=== PATIENT | female | born 1930 | race Caucasian/White ===

== ENCOUNTER 2021-08-08 07:10 | Day surgery (SDC) | payer MEDICARE, OTHER ==
[~2021-08-08 07:10] MED LIST: COUMADIN 22.5 MG/TAB PO; CRESTOR40 MG PO; GLUCOPHAGE XR500 M1 PO; PRINIVIL20 MG PO; PROTONIX20 MG PO; TRULICITY4.5 MG/0.5 SQ; ZETIA 10MG TAB10 MG PO; ZOLOFT 50MG50 MG PO
[2021-08-08] MEDS ORDERED: VITAMIN D31000 I1 PO (07:49)
[2021-08-08 08:04] VITALS: BP 155/55; PULSE 87; TEMP 98.2
[2021-08-08 08:06] LABS: BASO # 0.1 K/mm3 (0.0-0.2); BASO % 0.6 % (0.0-2.0); EOS # 0.1 K/mm3 (0.0-0.7); EOS % 1.6 % (0.0-4.0); GRAN # 6.7 K/mm3 (1.4-6.5); GRAN % 75.1 % (42.2-75.2); HEMOGLOBIN 10.8 g/dl (12.5-16.0); LYMPH # 1.3 K/mm3 (1.2-3.4); LYMPH % 14.6 % (20.0-51.0); MEAN CELL VOLUME 91 fl (80.0-100.0); MEAN CORPUSCULAR HEMOGLOBIN 30 pg (27-31); MEAN CORPUSCULAR HGB CONC 33 g/dl (33.0-37.0); MONO # 0.7 K/mm3 (0.1-0.6); MONO % 7.8 % (1.7-9.3); PLATELET COUNT 223 K/mm3 (130-400); RED BLOOD COUNT 3.63 M/mm3 (4.10-5.30); REDCELL DISTRIBUTION WIDTH-CV 14.2 % (11.5-14.5)
[2021-08-08 08:14] LABS: PROTHROMBIN TIME 21.8 SECONDS (9.7-12.8)
[2021-08-08 08:16] LABS: HEMATOCRIT 32.9 % (37.0-47.0)
[2021-08-08 08:22] LABS: COLLECTION METHOD CATHETER
[2021-08-08 08:23] LABS: ALBUMIN 3.1 gm/dL (3.4-4.8); BILIRUBIN,TOTAL 0.5 mg/dL (0.2-1.2); CALCIUM 8.6 mg/dL (8.4-10.2); CREATININE, serum 1.89 mg/dL (0.57-1.11); POTASSIUM 4.8 mmol/L (3.5-4.5)
[2021-08-08 08:36] LABS: MUCOUS Present (NOT PRESENT); PH 7 (5-8); SQUAMOUS EPITHELIAL 0-2 /hpf (0-10); URINE APPEARANCE Clear (CLEAR/HAZY); URINE BACTERIA Occasional /hpf (NONE SEEN); URINE BILIRUBIN Negative (NEGATIVE); URINE BLOOD 3+ (NEGATIVE); URINE COLOR Yellow (YELLOW); URINE GLUCOSE Negative (NEGATIVE); URINE KETONE Negative (NEGATIVE); URINE LEUKOCYTE ESTERASE Trace (NEGATIVE); URINE NITRATE Negative (NEGATIVE); URINE PROTEIN(semi-quant) Negative (NEGATIVE); URINE UROBILINOGEN Negative (NEGATIVE)
--- NOTE | 2021-08-08 08:50 | NUR ---
PT ADMITTED TO ROOM 323. TRANSFER FROM [facility] PER EMS. PT IS ALERT AND ORIENTED TO PERSON. PT HAS BASELINE DEMENTIA PER [facility] H&P. DYLAN GRAY WITH DR. WALLACE IN TO SEE PT ON ARRIVAL. PT WILL NEED MEDICAL CLEARANCE. PT IS DNR PER SON AND PAPERWORK SENT BY NH. LEFT LEG IS INTERNALLY ROTATED AND PT REPORTS THAT THIS POSITION IS COMFORTABLE AND REPORTING PAIN AT 0/10.
--- NOTE | 2021-08-08 11:02 | NUR ---
PT RESTING IN BED. WAITING FOR MEDICAL CLEARANCE TO PROCEED WITH SURGERY.
[2021-08-08 12:19] VITALS: BP 150/51; PULSE 89; TEMP 98.2
[2021-08-08 15:33] VITALS: BP 151/91; PULSE 93; TEMP 97.9
--- NOTE | 2021-08-08 16:49 | NUR ---
Yovani ROACH informs this Configuration Consultant that patient is awaiting surgery, and will likely need skilled care at discharge. Patient is oriented only to self, and currently resides at [facility] in [place]. Patient son was at bedside and just left. He is interested in options for discharge planning. This Configuration Consultant unable to identify son Alonzo Walter's telephone contact in the medical record. Configuration Consultant contacted [facility] seeking contact information for patient son, and Ivonne ROACH informs cannot locate this information at this time. She does not know if the facility can offer patient increased level of care and/or fci or rehab services upon return at discharge. She locates a telephone contact for "Janie" whom she believes is Alonzo's spouse , who may be able to give contact for Alonzo. She requests Configuration Consultant call back tomorrow and speak to SAMY Quintero or Cat Dog Or Other Pet Groomer Yuliana for further information. Configuration Consultant contacted Janie and left a general voice message for Alonzo requesting call back; no protected healthcare information or patient identifier released at this time. Configuration Consultant will continue to follow; patient will not discharge until after surgery. Attempting to locate contact information for patient son Alonzo, who wants to discuss discharge planning and options for care. RN at [facility] unable to identify the levels of care available at the facility. *Discharge plan: SNF or IPR vs. return to [facility]*
[2021-08-08 20:07] VITALS: BP 139/82; PULSE 96; TEMP 99
--- NOTE | 2021-08-08 20:29 | NUR ---
PT ASSISTED WITH REPOSITIONING, OBVIOUS DEFORMITY OF LT LEG. IRAHETA TO BSD, URINE YELLOW. ORIENTED TO PERSON, UNSURE WHERE SHE IS. TAKES HS MED WITHOUT PROBLEM. REFUSED DINNER. MORPHINE 2MG IVP GIVEN. HAS IV TO LEFT FOREARM, FLUIDS INFUSING WITHOUT PROBLEM. WILL BE NPO AFTER MN FOR POSSIBLE SURGERY 08/09.
[2021-08-08 23:20] VITALS: BP 114/24; PULSE 87; TEMP 97.7
--- NOTE | 2021-08-09 02:52 | NUR ---
PT MOANING, MORPHINE 2MG IVP GIVEN AT THIS TIME. IS NPO FOR POSSIBLE SURGERY TODAY.
[2021-08-09 03:17] VITALS: BP 103/73; PULSE 86; TEMP 98.5
--- NOTE | 2021-08-09 06:00 | NUR ---
PT RESTING WELL IN BED. IS NPO.
[2021-08-09 06:15] LABS: INR 2.8 (0.8-3.0); PROTHROMBIN TIME 30.9 SECONDS (9.7-12.8)
[2021-08-09 06:21] LABS: BASO # 0.1 K/mm3 (0.0-0.2); BASO % 0.7 % (0.0-2.0); EOS # 0.2 K/mm3 (0.0-0.7); EOS % 2.7 % (0.0-4.0); GRAN # 4.9 K/mm3 (1.4-6.5); GRAN % 73.8 % (42.2-75.2); LYMPH # 0.9 K/mm3 (1.2-3.4); LYMPH % 13.2 % (20.0-51.0); MEAN CELL VOLUME 92 fl (80.0-100.0); MEAN CORPUSCULAR HGB CONC 32 g/dl (33.0-37.0); MEAN PLATELET VOLUME 10.4 fl (7.4-10.4); MONO # 0.6 K/mm3 (0.1-0.6); MONO % 9.3 % (1.7-9.3); PLATELET COUNT 210 K/mm3 (130-400); RED BLOOD COUNT 3.33 M/mm3 (4.10-5.30); REDCELL DISTRIBUTION WIDTH-CV 14.3 % (11.5-14.5)
[2021-08-09 06:37] LABS: CREATININE, serum 1.27 mg/dL (0.57-1.11); POTASSIUM 4.6 mmol/L (3.5-4.5)
[2021-08-09 07:01] LABS: HEMATOCRIT 30.6 % (37.0-47.0); HEMOGLOBIN 9.8 g/dl (12.5-16.0); MEAN CORPUSCULAR HEMOGLOBIN 29 pg (27-31)
--- NOTE | 2021-08-09 08:00 | NUR ---
PATIENT IS CONFUSED AT BASELINE AND DROWSY THIS AM. PATIENT LIVES IN A NH IN [place]. VSS. APPEARS TO BE COMFORTABLE WITH NO COMPLAINTS. ADITTED FOR LEFT HIP FX AND SURGERY PENDING. INR THIS AM WAS 2.8, NO SURGERY TODAY, ORTHO ROUNDING NOW AND TALKING WITH SON ON PHONE. HEAD TO TOE ASSESSMENT COMPLETE. AM MEDS GIVEN. IV FLUIDS INFUSING INTO LEFT FOARARM IV VIA PUMP. IRAHETA TO DD WITH SMALL AMOUNTS OF YELLOW URINE NOTED AT THIS TIME. AM BS WAS 123. PATIENT WAS NPO FOR PENDING SURGERY WHICH WILL NOT HAPPEN TODAY NOW. SCD'S TO BLE. CALL LIGHT IN REACH. BED ALARM ON. PATIENT RESTING, NO NEEDS AT THIS TIME.
[2021-08-09 08:01] VITALS: BP 136/50; PULSE 91; TEMP 97.3
[2021-08-09 12:04] VITALS: BP 108/44; PULSE 84; TEMP 98.4
[2021-08-09 16:00] VITALS: BP 137/59; PULSE 85; TEMP 98.8
[2021-08-09 19:30] VITALS: BP 106/39; PULSE 92; TEMP 99.4
[2021-08-09 20:45] LABS: INR 2.3 (0.8-3.0); PROTHROMBIN TIME 25.4 SECONDS (9.7-12.8)
--- NOTE | 2021-08-09 21:59 | NUR ---
PT RESTING WITH GRIMACE, ALERT TO SELF. IRAHETA INTACT TO DD. MORPHINE FOR PAIN. PT IS CONFUSED AND WILL OFTEN DENY PAIN BUT GRIMACES, HAS DEMENTIA. INR 2.3 CALLED TO [facility]A-VIT K DOSE GIVEN. IV FLUIDS RUNNING. PM MEDS GIVEN.
[2021-08-09 23:55] VITALS: BP 118/41; PULSE 90; TEMP 98
[2021-08-10 03:43] VITALS: BP 128/46; PULSE 90; TEMP 98.4
--- NOTE | 2021-08-10 06:01 | NUR ---
RESTED THROUGH THE NIGHT WITHOUT INCIDENT. FLUIDS RUNNING. CATH IN PLACE. HAS BEEN NPO INCASE INR COMES DOWN FOR SURGERY. NEEDS MET.
[2021-08-10 07:03] LABS: BASO # 0.1 K/mm3 (0.0-0.2); BASO % 0.7 % (0.0-2.0); EOS # 0.3 K/mm3 (0.0-0.7); GRAN # 5.6 K/mm3 (1.4-6.5); GRAN % 73.7 % (42.2-75.2); LYMPH # 0.9 K/mm3 (1.2-3.4); LYMPH % 11.6 % (20.0-51.0); MEAN CELL VOLUME 93 fl (80.0-100.0); MEAN CORPUSCULAR HGB CONC 32 g/dl (33.0-37.0); MEAN PLATELET VOLUME 10.2 fl (7.4-10.4); MONO # 0.7 K/mm3 (0.1-0.6); MONO % 9.6 % (1.7-9.3); PLATELET COUNT 191 K/mm3 (130-400); RED BLOOD COUNT 3.18 M/mm3 (4.10-5.30); REDCELL DISTRIBUTION WIDTH-CV 14.2 % (11.5-14.5)
[2021-08-10 07:04] LABS: INR 1.8 (0.8-3.0); PROTHROMBIN TIME 20.4 SECONDS (9.7-12.8)
[2021-08-10 07:07] LABS: HEMATOCRIT 29.7 % (37.0-47.0); HEMOGLOBIN 9.4 g/dl (12.5-16.0); MEAN CORPUSCULAR HEMOGLOBIN 30 pg (27-31)
[2021-08-10 07:18] LABS: CALCIUM 7.8 mg/dL (8.4-10.2); CREATININE, serum 1.02 mg/dL (0.57-1.11); POTASSIUM 4.3 mmol/L (3.5-4.5)
--- NOTE | 2021-08-10 07:49 | NUR ---
ASSESSMENT COMPLETE. PT. IS LYING IN BED AWAKE. SHE IS ORIENTED TO NAME ONLY. SHE HAS LR FLOWING INTO RIGHT FORARM AT 75 ML/HR. IRAHETA IS SECURED AND DEPENDENT TO DRAINAGE. LEFT LEG IS SUPPORTED BY PILLOWS. CALL LIGHT IS WITHIN REACH. WILL CONTINUE TO MONITOR PT. CLOSELY.
[2021-08-10 08:00] VITALS: BP 171/75; PULSE 102; TEMP 100.6
--- NOTE | 2021-08-10 08:30 | NUR ---
NOTIFIED HOSPITALIST TEAM OF LOW GRADE TEMP OF 100.6 AND INR OF 1.8. SEE NEW ORDERS. GAVE PRN TYLENOL, SENT [facility], AND CALLED RADIOLOGY FOR CXR. PATIENT ALREADY GIVEN IV MORPHINE FOR COMFORT. VITALS IMPROVED, SEE FLOWSHEET. PATIENT RESTING COMFORTABLY AT THIS TIME. CALL LIGHT IN REACH. BED ALARM ON. SON WAS HERE BRIEFLY THIS AM AND WENT TO WORK TILL CLOSER TO SURGERY TIME. CONTACT NUMBER ON BOARD.
[2021-08-10 09:05] VITALS: BP 151/52; PULSE 101; TEMP 98.8
--- NOTE | 2021-08-10 10:28 | NUR ---
ANTHONY obtained the patient's son, Alonzo's, phone number in the chart. [phone]. SW contacted the patient's son, Alonzo, to review discharge plan and to discuss SNF. Alonzo confirms that the patient resides at [facility] in [place]. Him and his brother are in agreement to SNF. He states that they both live in [place] and would prefer 1) [facility] 2) [facility]. SW notified both facilities. SW student faxed a referral to both facilities. Awaiting screens. The patient is awaiting surgery. *Discharge plan: SNF, referrals out*
--- NOTE | 2021-08-10 10:30 | NUR ---
Social Work student faxed SNF referrals to Chiki at [facility] and Mayra at [facility].
[2021-08-10 10:49] LABS: COLLECTION METHOD CATHETER
--- NOTE | 2021-08-10 11:00 | NUR ---
RADIOLOGY AT BEDSIDE TO OBTAIN CXR
[2021-08-10 11:05] LABS: MUCOUS Present (NOT PRESENT); PH 5 (5-8); SQUAMOUS EPITHELIAL None Seen /hpf (0-10); URINE APPEARANCE Clear (CLEAR/HAZY); URINE BACTERIA Rare /hpf (NONE SEEN); URINE BILIRUBIN Negative (NEGATIVE); URINE BLOOD 3+ (NEGATIVE); URINE COLOR Yellow (YELLOW); URINE GLUCOSE Negative (NEGATIVE); URINE KETONE 1+ (NEGATIVE); URINE LEUKOCYTE ESTERASE Negative (NEGATIVE); URINE NITRATE Negative (NEGATIVE); URINE PROTEIN(semi-quant) Negative (NEGATIVE); URINE RBC 0-2 /hpf (0-2); URINE UROBILINOGEN Negative (NEGATIVE)
[2021-08-10 12:00] VITALS: BP 101/30; BP 116/62; PULSE 95; TEMP 98.6
--- NOTE | 2021-08-10 12:09 | NUR ---
First visit from the finance business manager. No needs right now.
[2021-08-10 13:31] LABS: INR 1.6 (0.8-3.0); PROTHROMBIN TIME 17.4 SECONDS (9.7-12.8)
[2021-08-10 15:32] VITALS: BP 152/57; PULSE 90; TEMP 99
--- NOTE | 2021-08-10 18:33 | NUR ---
PT. SPENT THE AFTERNOON SLEEPING IN BED. MORPHINE WAS GIVEN TWICE (SEE EMAR) THIS SHIFT WHEN PT STARTED TO GRIMACE, BECOME TENSE, AND MOAN. CALL LIGHT WITHIN REACH. PT. IS FREQUENTLY CHECKED ON. NO FURTHER NEEDS AT THIS TIME.
[2021-08-10 19:44] LABS: INR 1.6 (0.8-3.0)
[2021-08-10 20:18] VITALS: BP 131/65; PULSE 99; TEMP 98.2
--- NOTE | 2021-08-10 20:57 | NUR ---
PT IN BED, MOANING IN PAIN. TAKES HS MED WITHOUT PROBLEM. MEDICATED WITH MORPHINE 2MG IVP AT THIS TIME. HAS IVF TO LEFT FOREARM, NO REDNESS OR SWELLING. INR=1.6, VIT K IV GIVEN PER ORDER. IRAHETA TO BSD, YELLOW URINE. LEFT LEG AT AWKWARD POSITION, SCREAMS IN PAIN WITH REPOSITIONING. POSSIBLE SURGERY TOMORROW.
[2021-08-11] VITALS (14 sets, daily range): BP systolic 94–166; BP diastolic 49–87; PULSE 85–107; TEMP 97.4–99.1
--- NOTE | 2021-08-11 01:16 | NUR ---
PT MOANING IN PAIN, MORPHINE 2MG IVP GIVEN.
[2021-08-11 05:13] LABS: BASO % 0.5 % (0.0-2.0); EOS # 0.3 K/mm3 (0.0-0.7); GRAN # 6.4 K/mm3 (1.4-6.5); GRAN % 77.9 % (42.2-75.2); LYMPH # 0.8 K/mm3 (1.2-3.4); LYMPH % 9.9 % (20.0-51.0); MEAN CELL VOLUME 90 fl (80.0-100.0); MEAN CORPUSCULAR HGB CONC 33 g/dl (33.0-37.0); MEAN PLATELET VOLUME 10.1 fl (7.4-10.4); MONO # 0.7 K/mm3 (0.1-0.6); MONO % 8.3 % (1.7-9.3); PLATELET COUNT 193 K/mm3 (130-400); RED BLOOD COUNT 3.37 M/mm3 (4.10-5.30)
[2021-08-11 05:18] LABS: HEMATOCRIT 30.4 % (37.0-47.0); HEMOGLOBIN 9.9 g/dl (12.5-16.0); MEAN CORPUSCULAR HEMOGLOBIN 29 pg (27-31)
[2021-08-11 05:27] LABS: CALCIUM 7.8 mg/dL (8.4-10.2); CREATININE, serum 0.92 mg/dL (0.57-1.11); POTASSIUM 4.3 mmol/L (3.5-4.5)
[2021-08-11 06:36] LABS: INR 1.5 (0.8-3.0); PROTHROMBIN TIME 16.6 SECONDS (9.7-12.8)
--- NOTE | 2021-08-11 07:35 | NUR ---
ASSESSMENT COMPLETE. PT RESTING IN BED WITH OCCASIONAL MOAN. SHE OPENS HER EYES AND TALKS WHEN TOUCHED. MORPHINE GIVEN IV (SEE EMAR). IRAHETA SECURED AND DEPENDENT TO DRAINAGE. VIT. K AND NS RUNNING THROUGH LEFT FORARM IV. LEFT LEG IS SUPPORTED BY PILLOWS. NO FURTHER NEEDS AT THIS TIME. CALL LIGHT WITHIN REACH. WILL CONTINUE TO CHECK ON PT REGURALY.
--- NOTE | 2021-08-11 09:15 | NUR ---
CALLED LAB AND RE-ENTERED ORDER FOR TYPE & SCREEN THAT WAS ORDERED YESTERDAY, PER , FOR PENDING SURGERY TODAY. LAB CANCELED TYPE & SCREEN FOR UNKNOWN REASONS. LAB TO GET TYPE & SCREEN STAT
--- NOTE | 2021-08-11 11:05 | NUR ---
The patient may be able to have surgery today, depending on her if her INR comes down. SW faxed updates to [facility] and [facility].
[2021-08-11 13:18] LABS: INR 1.4 (0.8-3.0)
--- NOTE | 2021-08-11 13:48 | NUR ---
PATIENT GOING DOWN TO OR VIA BED. PRE-OP INR OF 1.4, CLEARED FOR SURGERY WITH OR AND ANESTHESIA. CONSENT ON CHART. PRE-OP FLUIDS INFUSING INTO LEFT FORARM IV. SONS AT BEDSIDE. PATIENT OF FLOOR.
--- NOTE | 2021-08-11 16:55 | NUR ---
PT. TO ROOM 323 POST LEFT HIP SURGERY. PT. HANDLED PROCEDURE WELL. PT IS DROWSY BUT ALERT AND RELAXED. PEDAL PULSES ARE INTACT. IRAHETA IN PLACE. FLUIDS FLOWING IN LEFT FORARM. FAMILY IS AT BEDSIDE. WATER AND JELLO WAS PROVIDED AND ACCEPTED BY PT. CALL LIGHT WITHIN REACH. NO FURTHER NEEDS AT THIS TIME. WILL CONTINUE TO MONITOR.
--- NOTE | 2021-08-11 19:31 | NUR ---
PT AWAKE, CONFUSED. TAKING BLANKETS AND GOWN OFF. THINKS SHE NEEDS TO GET UP AND GO HOME. NEW IV SITE STARTED BY SALVADOR ROACH TO LEFT UPPER ARM. ATTEMPTED REORIENTATION WITHOUT SUCCESS. MEDICATED WITH MORPHINE FOR FACIAL GRIMACING WHEN MOVING LEFT LEG.
--- NOTE | 2021-08-11 20:20 | NUR ---
PT HAS CLOTHES OFF AND IS PULLING ON IRAHETA CATHETER. INSISTING ON LEAVING. MITTS PLACED ON PT TO PROTECT IRAHETA, DRSG AND IV SITE.
--- NOTE | 2021-08-11 22:17 | NUR ---
PT MORE CALM WITH MITTS ON. MEDICATED WITH HS MEDS INCLUDING OXYCODONE 5MG PO. AQUACEL DRSG INTACT TO LEFT LEG. IRAHETA PATENT, IV SITE TO LEFT UPPER ARM WITHOUT REDNESS OR SWELLING. BED ALARM ON.
[2021-08-12] VITALS (7 sets, daily range): BP systolic 109–163; BP diastolic 41–93; PULSE 76–124; TEMP 97.4–98.6
--- NOTE | 2021-08-12 00:30 | NUR ---
PT RESTING WELL, SLEPT THRU VS.
--- NOTE | 2021-08-12 04:09 | NUR ---
PT AWAKE, RESTLESS AND GRIMACING IN PAIN. MEDICATED WITH MORPHINE 2MG IVP AT THIS TIME. REMAINS IN MITTS TO PROTECT IV SITE AND IRAHETA.
--- NOTE | 2021-08-12 06:35 | NUR ---
SCHEDULED AM MED GIVEN WITH OXYCODONE 5MG PO AT THIS TIME. PT AWAKE AND TALKATIVE.
[2021-08-12 06:39] LABS: MEAN CELL VOLUME 94 fl (80.0-100.0); MEAN CORPUSCULAR HGB CONC 31 g/dl (33.0-37.0); MEAN PLATELET VOLUME 10.3 fl (7.4-10.4); PLATELET COUNT 232 K/mm3 (130-400); RED BLOOD COUNT 3.23 M/mm3 (4.10-5.30); REDCELL DISTRIBUTION WIDTH-CV 14.1 % (11.5-14.5)
--- NOTE | 2021-08-12 06:40 | NUR ---
awake and in bed, ISAAC Centeno in to see patient, she is pleasant and cooperative at this time, bedside shift report received from DOC Garrett
[2021-08-12 06:41] LABS: HEMATOCRIT 30.3 % (37.0-47.0); HEMOGLOBIN 9.4 g/dl (12.5-16.0); MEAN CORPUSCULAR HEMOGLOBIN 29 pg (27-31)
[2021-08-12 06:57] LABS: CALCIUM 7.8 mg/dL (8.4-10.2); POTASSIUM 4.5 mmol/L (3.5-4.5)
[2021-08-12 07:25] LABS: BAND 7 % (0-10); LYMPHOCYTE 5 % (20.0-51.0); NEUTROPHILS 85 % (42.0-75.2); OVALOCYTES 1+
[2021-08-12 07:26] LABS: HYPOCHROMIA 2+; PLATELET ESTIMATE NORMAL (NORMAL); POIKILOCYTOSIS 2+; SCHISTOCYTES 1+
--- NOTE | 2021-08-12 08:20 | NUR ---
awake and resting in bed, trying to take off mitts to bilateral hands, saying she has to go to the bathroom, reminded her she had a catheter and also reoriented to day and place, mitts were removed and she is not attempting to remove catheter or IV at this time, full assessment completed, see interventions for further info, repositioned up in bed and breakfast ordered,
--- NOTE | 2021-08-12 09:30 | NUR ---
physical and occupational therapist in to work with patient, they were able to get her to sit up on side of bed but she resisted them helping her do this, she wouldn't even follow commands of therapist to raise her arms, back in bed in supine position
--- NOTE | 2021-08-12 10:21 | NUR ---
sitting up in bed and assited her with Dr Kleber hodges and care team in to see patient, ate small amount of breakfast
--- NOTE | 2021-08-12 11:19 | NUR ---
Social Work student faxed clinical updates to Chiki at [facility] and Mayra at [facility].
--- NOTE | 2021-08-12 11:30 | NUR ---
sons state she is more fidgety at this time, medicated with roxicodone 5mg for pain, she does state she has pain when asked, ate all of applesauce
--- NOTE | 2021-08-12 12:00 | NUR ---
hassan catheter discontinued and purewick catheter placed, repositioned onto right side
--- NOTE | 2021-08-12 12:30 | NUR ---
is less fidgety and restless now, remains on right side
--- NOTE | 2021-08-12 13:08 | NUR ---
is restless again and talking about getting a bus, attempt to reorient but remains confused
--- NOTE | 2021-08-12 13:16 | NUR ---
Mayra, at [facility], reports that they are unable to accept the patient; due to not having availabilty in their special care unit.
--- NOTE | 2021-08-12 13:23 | NUR ---
restless and pulling at covers and talking about nothing that is making sense, attempt to reorient but unable
--- NOTE | 2021-08-12 14:15 | NUR ---
resting in bed with eyes open looking around
--- NOTE | 2021-08-12 14:35 | NUR ---
Social Work student attempted to call Chiki at [facility] to follow up on whether this facility can accept the patient for SNF and got the voicemail. ANTHONY left a voicemail.
--- NOTE | 2021-08-12 14:50 | NUR ---
HEALTH PROMOTION COORDINATOR in and assisted her with eating a late lunch, ate mod amount, she has purewick but nothing in cannister and has not been incontinent
--- NOTE | 2021-08-12 15:04 | NUR ---
Received a call back from Eliza, who is filling in for Chiki, who asked this SW if the patient is still having "behavioral issues." This SW said she was unsure if there were behavioral problems and if they were continuing. Eliza asked if ANTHONY could sent the notes continued from today, and ANTHONY said she could. Eliza stated that they could tentatively take tomorrow. *ANTHONY faxed over notes from the end of today to [facility]
--- NOTE | 2021-08-12 15:30 | NUR ---
is fidgeting with covers and has removed purewick external catheter, left off at this time
--- NOTE | 2021-08-12 16:51 | NUR ---
son back in to visit, spoke with him regarding her cognition and that she has been restless this afternoon and why this may be, due to hx dementia, anesthesia and out of regular environment, verbalizes understanding
--- NOTE | 2021-08-12 18:00 | NUR ---
remains restless in bed, another son is here now and explained the situation to him and verbalizes understanding. has not voided since removing hassan, bladder scan reveals approx 120ml urine in bladder. offered sips of water but declines
--- NOTE | 2021-08-12 18:52 | NUR ---
bedside shift report given to DOC Buchanan
--- NOTE | 2021-08-12 19:30 | NUR ---
Pt. sitting up in bed. PT. is alert and confused. INT to lt. upper arm patent. Pt. denies pain or other needs.
[2021-08-13] VITALS: BP 156/55; PULSE 91; TEMP 99.6
[2021-08-13 04:00] VITALS: BP 154/76; PULSE 101; TEMP 98.3
[2021-08-13 06:30] LABS: BASO % 0.1 % (0.0-2.0); EOS % 0.1 % (0.0-4.0); GRAN # 12.8 K/mm3 (1.4-6.5); GRAN % 89.7 % (42.2-75.2); LYMPH # 0.6 K/mm3 (1.2-3.4); LYMPH % 3.9 % (20.0-51.0); MEAN CORPUSCULAR HGB CONC 33 g/dl (33.0-37.0); MEAN PLATELET VOLUME 10.4 fl (7.4-10.4); MONO # 0.8 K/mm3 (0.1-0.6); MONO % 5.6 % (1.7-9.3); PLATELET COUNT 250 K/mm3 (130-400); RED BLOOD COUNT 3.27 M/mm3 (4.10-5.30); REDCELL DISTRIBUTION WIDTH-CV 14.3 % (11.5-14.5)
[2021-08-13 06:33] LABS: INR 1.4 (0.8-3.0); PROTHROMBIN TIME 15.1 SECONDS (9.7-12.8)
[2021-08-13 06:41] LABS: HEMATOCRIT 29.2 % (37.0-47.0); HEMOGLOBIN 9.6 g/dl (12.5-16.0); MEAN CORPUSCULAR HEMOGLOBIN 29 pg (27-31)
[2021-08-13 06:42] LABS: MEAN CELL VOLUME 89 fl (80.0-100.0)
[2021-08-13 06:45] LABS: CREATININE, serum 1.19 mg/dL (0.57-1.11)
[2021-08-13 07:29] VITALS: BP 136/60; PULSE 105; TEMP 98.8
--- NOTE | 2021-08-13 09:04 | NUR ---
ASSESSMENT COMPLETE. PT. IS CONFUSED AND ORIENTED TO SELF ONLY. PT. REPOSTIONED IN BED AND HELPED TO EAT BREAKFAST. MEDS WERE GIVEN CRUSHED IN APPLESAUCE. PT. INCONTIENT OF URINE. INT IN LEFT UPPPER ARM. DOES NO APPEAR TO BE IN ACUTE DISTRESS. CALL LIGHT WITHIN REACH AND WILL CONTINUE TO CHECK ON PT. REGURALLY.
[2021-08-13] MEDS ORDERED: CRESTOR40 MG PO (09:22)
[2021-08-13] MEDS ORDERED: ZETIA 10MG TAB10 MG PO (09:22)
[2021-08-13] MEDS ORDERED: TYLENOL 325MG325 MG PO (09:22)
[2021-08-13] MEDS ORDERED: COUMADIN 22.5 MG/TAB PO (09:22)
[2021-08-13] MEDS ORDERED: ZOLOFT 50MG50 MG PO (09:23)
[2021-08-13] MEDS ORDERED: OSCAL 500 TAB500 MG PO (09:23)
[2021-08-13] MEDS ORDERED: GLUCOPHAGE XR500 M1 PO (09:23)
[2021-08-13] MEDS ORDERED: PROTONIX20 MG PO (09:23)
[2021-08-13] MEDS ORDERED: MULTI VITAMINS1 TAB PO (09:24)
[2021-08-13] MEDS ORDERED: TRULICITY4.5 MG/0.5 SQ (09:24)
[2021-08-13] MEDS ORDERED: VITAMIN D31000 I1 PO (09:24)
[2021-08-13] MEDS ORDERED: VITAMIN C500 MG PO (09:24)
[2021-08-13] MEDS ORDERED: ROXICODONE 55 MG/TAB PO (09:25)
--- NOTE | 2021-08-13 10:18 | NUR ---
Chiki, at [facility], states that they are able to accept the patient. ANTHONY notified the clinical team. The team is ready to discharge the patient today. ANTHONY updated the patient's son, Alonzo. Alonzo is in agreement to the plan. ANTHONY presented and read the IM form outloud to Alonzo. Alonzo verbalized understanding and of discharge today. He signed the form and ANTHONY provided him with a copy. The patient is to discharge today, 08/13, to [facility] for a skilled stay. Transportation was scheduled at 1400, via [facility]. ANTHONY informed the patient's son and RN of the time. No additional needs at this time.
[2021-08-13 11:38] VITALS: BP 140/82; PULSE 96; TEMP 98.4
--- NOTE | 2021-08-13 14:04 | NUR ---
PT. OFF FLOOR TO VIA [facility]IA [facility]. BELONGINGS WITH PATIENT AND FAMILY. ALL QUESTIONS WERE INVITED AND ANSWERED. REPORT CALLED TO RECEVING FACILITY. PT. DISCHARGED.
== END 2021-08-13 14:10 ==
LOC: SDCO 07:10 → SURG 07:10 → EDSTATUS 15:00 → SURG 08-13 14:10 → SDCO 08-13 14:10
PROVIDERS: Family Medicine; Nurse Practitioner Family; Orthopaedic Surgery Sports Medicine; Physician Assistant; Student in an Organized Health Care Education/Training Program
DX: S72.8X2A Other fracture of left femur, initial encounter for closed fracture (principal); M97.01XA Periprosthetic fracture around internal prosthetic right hip joint, initial encounter; R94.4 Abnormal results of kidney function studies; I44.0 Atrioventricular block, first degree; R82.81 Pyuria; I10 Essential (primary) hypertension; E78.5 Hyperlipidemia, unspecified; I25.10 Atherosclerotic heart disease of native coronary artery without angina pectoris; Z20.822 Contact with and (suspected) exposure to COVID-19; E11.9 Type 2 diabetes mellitus without complications; Z66 Do not resuscitate; F03.90 Unspecified dementia, unspecified severity, without behavioral disturbance, psychotic disturbance, mood disturbance, and anxiety; K21.9 Gastro-esophageal reflux disease without esophagitis; K59.00 Constipation, unspecified; F32.A Depression, unspecified; M19.90 Unspecified osteoarthritis, unspecified site; X50.9XXA Other and unspecified overexertion or strenuous movements or postures, initial encounter; Y92.129 Unspecified place in nursing home as the place of occurrence of the external cause; Z79.84 Long term (current) use of oral hypoglycemic drugs; Z79.899 Other long term (current) drug therapy; Z79.01 Long term (current) use of anticoagulants; Z86.711 Personal history of pulmonary embolism
CPT/HCPCS: OP; 99222-AI; 99232-AI; 99239; A9284; C1713; C1776; J0690; J0696; J1815; J2250; J2270; J2704; J2795; J3010; J3430; J7030; J7120; J7121

== ENCOUNTER → 2021-08-17 | Outpatient (REF) ==
[~2021-08-17] MED LIST changes: +MULTI VITAMINS1 TAB PO; +OSCAL 500 TAB500 MG PO; +ROXICODONE 55 MG/TAB PO; +TYLENOL 325MG325 MG PO; +VITAMIN C500 MG PO; +VITAMIN D31000 I1 PO
[2021-08-17 09:52] LABS: BASO # 0.1 K/mm3 (0.0-0.2); BASO % 0.5 % (0.0-2.0); EOS # 0.4 K/mm3 (0.0-0.7); EOS % 4.4 % (0.0-4.0); GRAN # 7.1 K/mm3 (1.4-6.5); GRAN % 75.8 % (42.2-75.2); MEAN CELL VOLUME 89 fl (80.0-100.0); MEAN CORPUSCULAR HGB CONC 33 g/dl (33.0-37.0); MEAN PLATELET VOLUME 10.3 fl (7.4-10.4); MONO # 0.7 K/mm3 (0.1-0.6); MONO % 7.3 % (1.7-9.3); PLATELET COUNT 262 K/mm3 (130-400); RED BLOOD COUNT 3.15 M/mm3 (4.10-5.30); REDCELL DISTRIBUTION WIDTH-CV 14.8 % (11.5-14.5)
[2021-08-17 09:55] LABS: HEMATOCRIT 27.9 % (37.0-47.0); HEMOGLOBIN 9.3 g/dl (12.5-16.0); MEAN CORPUSCULAR HEMOGLOBIN 30 pg (27-31)
[2021-08-17 10:07] LABS: CALCIUM 7.9 mg/dL (8.4-10.2); CREATININE, serum 0.83 mg/dL (0.57-1.11); POTASSIUM 3.6 mmol/L (3.5-4.5)
== END ==
LOC: ZLAB.STJ 09:46
DX: N17.9 Acute kidney failure, unspecified (principal); Z79.01 Long term (current) use of anticoagulants

== ENCOUNTER → 2021-08-26 | Outpatient (REF) ==
[2021-08-26 10:29] LABS: BASO # 0.1 K/mm3 (0.0-0.2); EOS # 0.3 K/mm3 (0.0-0.7); EOS % 5.9 % (0.0-4.0); GRAN # 3.9 K/mm3 (1.4-6.5); GRAN % 68.3 % (42.2-75.2); HEMOGLOBIN 10.4 g/dl (12.5-16.0); LYMPH # 1.1 K/mm3 (1.2-3.4); LYMPH % 18.8 % (20.0-51.0); MEAN CELL VOLUME 96 fl (80.0-100.0); MEAN CORPUSCULAR HEMOGLOBIN 29 pg (27-31); MEAN CORPUSCULAR HGB CONC 30 g/dl (33.0-37.0); MEAN PLATELET VOLUME 10.2 fl (7.4-10.4); MONO # 0.3 K/mm3 (0.1-0.6); MONO % 5.7 % (1.7-9.3); PLATELET COUNT 364 K/mm3 (130-400); RED BLOOD COUNT 3.57 M/mm3 (4.10-5.30); REDCELL DISTRIBUTION WIDTH-CV 15.9 % (11.5-14.5)
[2021-08-26 10:31] LABS: HEMATOCRIT 34.2 % (37.0-47.0)
[2021-08-26 10:43] LABS: ALBUMIN 2.8 gm/dL (3.4-4.8); BILIRUBIN,TOTAL 0.6 mg/dL (0.2-1.2); CREATININE, serum 0.8 mg/dL (0.57-1.11); POTASSIUM 4.1 mmol/L (3.5-4.5); TOTAL PROTEIN 5.5 gm/dL (6.2-8.1)
== END ==
LOC: ZLAB.STJ 10:22
PROVIDERS: Internal Medicine
DX: E83.51 Hypocalcemia (principal); D50.0 Iron deficiency anemia secondary to blood loss (chronic)

== ENCOUNTER → 2021-11-26 | Outpatient (CLI) | payer MEDICARE, OTHER ==
[2021-11-26 16:30] LABS: ALBUMIN 3.5 gm/dL (3.4-4.8); BILIRUBIN,TOTAL 0.5 mg/dL (0.2-1.2); CALCIUM 9.1 mg/dL (8.4-10.2); CREATININE, serum 1.04 mg/dL (0.57-1.11); POTASSIUM 4.5 mmol/L (3.5-4.5); THYROID STIMULATING HORMONE 1.378 uIU/mL (0.350-4.940); TOTAL PROTEIN 6.3 gm/dL (6.2-8.1)
[2021-11-26 16:32] LABS: BASO % 0.5 % (0.0-2.0); EOS # 0.2 K/mm3 (0.0-0.7); GRAN # 5.8 K/mm3 (1.4-6.5); GRAN % 76.3 % (42.2-75.2); HEMOGLOBIN 11.1 g/dl (12.5-16.0); LYMPH % 13.5 % (20.0-51.0); MEAN CELL VOLUME 94 fl (80.0-100.0); MEAN CORPUSCULAR HEMOGLOBIN 29 pg (27-31); MEAN CORPUSCULAR HGB CONC 31 g/dl (33.0-37.0); MEAN PLATELET VOLUME 10.6 fl (7.4-10.4); MONO # 0.5 K/mm3 (0.1-0.6); MONO % 6.6 % (1.7-9.3); PLATELET COUNT 225 K/mm3 (130-400); RED BLOOD COUNT 3.83 M/mm3 (4.10-5.30); REDCELL DISTRIBUTION WIDTH-CV 15.5 % (11.5-14.5)
[2021-11-26 16:33] LABS: HEMATOCRIT 36.1 % (37.0-47.0)
== END ==
LOC: ZLAB.STJ 16:18
PROVIDERS: Internal Medicine
DX: I10 Essential (primary) hypertension (principal); E11.65 Type 2 diabetes mellitus with hyperglycemia